=== PATIENT | female | born 1950 | race Caucasian/White ===

== ENCOUNTER 2023-09-17 05:15 | Outpatient (REF) | payer SELFPAY ==
[2023-09-17 05:43] LABS: INTERNATIONAL NORM RATIO 1.8 (0.9-1.1); Prothrombin Time 21.8 SEC (11.1-13.3)
== END 2023-09-17 05:16 | disposition home or self-care (01) ==
LOC: HO.MMNH3L 05:15
PROVIDERS: Visit Provider Family Medicine
DX: C23 Malignant neoplasm of gallbladder (principal)
CPT/HCPCS: 36415; 85610

== ENCOUNTER 2023-09-19 15:26 | Outpatient (REF) | payer OTHER, MEDICARE, MEDICAID, SELFPAY ==
[2023-09-19 15:57] LABS: INTERNATIONAL NORM RATIO 1.4 (0.9-1.1); Prothrombin Time 16.6 SEC (11.1-13.3)
== END 2023-09-19 15:27 | disposition home or self-care (01) ==
LOC: HO.MMNH3L 15:26
PROVIDERS: Visit Provider Family Medicine
DX: M62.59 Muscle wasting and atrophy, not elsewhere classified, multiple sites (principal)
CPT/HCPCS: 36415; 85610

== ENCOUNTER 2023-09-20 05:58 | Outpatient (REF) | payer SELFPAY ==
[2023-09-20 06:34] LABS: INTERNATIONAL NORM RATIO 1.3 (0.9-1.1); Prothrombin Time 15.5 SEC (11.1-13.3)
== END 2023-09-20 05:59 | disposition home or self-care (01) ==
LOC: HO.MMNH3L 05:58
PROVIDERS: Visit Provider Family Medicine
DX: Z79.01 Long term (current) use of anticoagulants (principal)
CPT/HCPCS: 36415; 85610

== ENCOUNTER 2023-09-22 05:45 | Outpatient (REF) | payer OTHER, SELFPAY ==
[2023-09-22 06:15] LABS: INTERNATIONAL NORM RATIO 1.6 (0.9-1.1); Prothrombin Time 19.7 SEC (11.1-13.3)
== END 2023-09-22 05:46 | disposition home or self-care (01) ==
LOC: HO.MMNH3L 05:45
PROVIDERS: Visit Provider Family Medicine
DX: I50.9 Heart failure, unspecified (principal); Z79.01 Long term (current) use of anticoagulants; Z86.73 Personal history of transient ischemic attack (TIA), and cerebral infarction without residual deficits
CPT/HCPCS: 36415; 85610

== ENCOUNTER 2023-09-26 06:32 | Outpatient (REF) | payer OTHER, MEDICARE, MEDICAID, SELFPAY ==
[2023-09-26 07:06] LABS: INTERNATIONAL NORM RATIO 3.4 (0.9-1.1); Prothrombin Time 41.8 SEC (11.1-13.3)
== END 2023-09-26 06:33 | disposition home or self-care (01) ==
LOC: HO.MMNH3L 06:32
PROVIDERS: Visit Provider Family Medicine
DX: I48.91 Unspecified atrial fibrillation (principal)
CPT/HCPCS: 36415; 85610